=== PATIENT | female | born 1960 | race Two or more races ===

== ENCOUNTER 2017-03-20 12:27 | Emergency (ER) | payer MEDICAID ==
[~2017-03-20] VITALS: Ht 152.4 cm; Wt 64.0 kg
[2017-03-20] MEDS ORDERED: IBUPROFEN 600 MG TABLET PO ONE ×2 (14:00→15:00)
[2017-03-20] MEDS ORDERED: oxyCODONE/APAP (5/325 MG) 1 UDTAB TABLET PO ONE (14:00)
[2017-03-20] MEDS ORDERED: ONDANSETRON 4 MG TAB.RAPDIS SL ONE (14:00)
[2017-03-20 14:55] VITALS: BP 139/85
[2017-03-20] MEDS ORDERED: ONDANSETRON 4 MG TAB.RAPDIS ONE (15:01)
[2017-03-20] MEDS ORDERED: HYDROCODONE/APAP 10/325MG 1 EA TABLET ONE (15:05)
[2017-03-20] MEDS ORDERED: HYDROCODONE/APAP 10/325MG 1 EA TABLET PO ONE (15:30)
== END 2017-03-20 15:05 | disposition home or self-care (01) ==
LOC: ER 12:31
DX: S60.212A Contusion of left wrist, initial encounter (principal); S60.211A Contusion of right wrist, initial encounter; S39.012A Strain of muscle, fascia and tendon of lower back, initial encounter; I10 Essential (primary) hypertension; E11.9 Type 2 diabetes mellitus without complications; J45.909 Unspecified asthma, uncomplicated; V49.59XA Passenger injured in collision with other motor vehicles in traffic accident, initial encounter; Y93.89 Activity, other specified; Y92.413 State road as the place of occurrence of the external cause; Y99.8 Other external cause status
CPT/HCPCS: 29125; 73110 ×2; 99284; A4606; Q0162; Z7610